=== PATIENT | female | born 1995 | race Caucasian/White ===

== ENCOUNTER 2017-11-13 18:29 | Emergency (ER) | payer OTHER ==
[~2017-11-13] VITALS: Ht 167.6 cm; Wt 58.9 kg
[2017-11-13 18:33] VITALS: Ht 167.6 cm; Wt 58.9 kg
[2017-11-13] MEDS ORDERED: ACETAMINOPHEN 500 MG TAB PO STA (19:51)
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
[2017-11-13] MEDS ORDERED: CYCL10TA6 PO (20:45)
[2017-11-13 21:16] VITALS: BP 115/81; PULSE 87; O2SAT 99
== END 2017-11-13 21:16 | disposition home or self-care (01) ==
LOC: C.EDB 18:32 → C.EDD 21:16
DX: R51 Headache (principal); M54.2 Cervicalgia; V87.7XXA Person injured in collision between other specified motor vehicles (traffic), initial encounter